=== PATIENT | male | born 1995 | race American Indian/Alaskan Native ===

== ENCOUNTER 2019-11-12 18:54 | Emergency (ER) | payer OTHER ==
[2019-11-12 19:00] VITALS: BP 148/88
[2019-11-12] MEDS ORDERED: HYDROcodone/ACETAMINOPHEN 5-325 MG TAB PO STA (19:47)
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
== END 2019-11-12 20:35 | disposition home or self-care (01) ==
LOC: ED 18:54
DX: M79.18 Myalgia, other site (principal); Z79.899 Other long term (current) drug therapy; V49.49XA Driver injured in collision with other motor vehicles in traffic accident, initial encounter; Y93.89 Activity, other specified; Y92.488 Other paved roadways as the place of occurrence of the external cause; Y99.8 Other external cause status
CPT/HCPCS: 99282